=== PATIENT | male | born 1985 | race Two or more races ===

== ENCOUNTER 2017-10-25 10:43 | Emergency (ER) | payer SELFPAY ==
[~2017-10-25] VITALS: Ht 172.7 cm; Wt 72.6 kg
[2017-10-25 10:49] VITALS: BP 92/61
[2017-10-25 11:06] VITALS: BP 92/61
--- NOTE | 2017-10-25 14:57 | Emergency Room Report ---
History of Present Illness General Chief Complaint: Medical Clearance Source: Patient Present Illness HPI Patient was brought in for clearance for booking Upon arrival the patient called the staff'daylin briscoe' And reports that he does not need to be here [facility] Department reports that the patient had complained of wrist pain previously At this time he denies that Allergies: Coded Allergies: No Known Allergies (Unverified , 10/25/17) Patient History Past Medical History: see triage record Pertinent Family History: none Reviewed Nursing Documentation: PMH: Agreed; PSxH: Agreed Nursing Documentation-PMH Past Medical History: No Stated History Review of Systems All Other Systems: negative except mentioned in HPI Physical Exam Vital Signs Date Time Temp Pulse Resp B/P (MAP) Pulse Ox O2 Delivery O2 Flow Rate FiO2 10/25/17 10:45 97.7 99 18 92/61 100 Room Air 97.7 Sp02 EP Interpretation: reviewed, normal General Appearance: no apparent distress Head: normocephalic, atraumatic Eyes: bilateral eye PERRL, bilateral eye EOMI Musculoskeletal: other - Patient was initially laying on the floor upon standing up patient uses his hands to stand up without any signs of deficits or discomfort Neurologic: alert, oriented x3 Lymphatic: no adenopathy Medical Decision Making Diagnostic Impression: Primary Impression: ok to book ER Course Patient has a fairly limited examination reports that he has no complaints and he feels fine Visual examination reveals the patient is able to move his wrist without in the deficit And appears hemodynamically stable for okay for booking Last Vital Signs Date Time Temp Pulse Resp B/P (MAP) Pulse Ox O2 Delivery O2 Flow Rate FiO2 10/25/17 11:06 97.7 103 18 92/61 100 Room Air 97.7 Status: unchanged Disposition: D/C TO [facility] Condition: Stable Scripts No Active Prescriptions or Reported Meds Referrals: NOT CHOSEN IPA/MD,REFERRING (PCP) Departure Forms: Prison Clearance Patient Instructions: Medical Screening Exam Additional Instructions: follow-up bart George in the morning Lorene Gordon DO Oct 25, 2017 14:57
== END 2017-10-25 11:15 ==
LOC: EMR 11:10
DX: Z02.89 Encounter for other administrative examinations (principal)
CPT/HCPCS: 99283